=== PATIENT | male | born 1965 | race Caucasian/White ===

== ENCOUNTER 2021-06-07 11:32 | Emergency (ER) | payer OTHER ==
[~2021-06-07] VITALS: Ht 167.6 cm; Wt 77.3 kg
[2021-06-07] MEDS ORDERED: MIDAZOLAM HCL 2 MG/2 ML VIAL IVP ONE (12:00)
[2021-06-07] MEDS ORDERED: ONDANSETRON HCL 4 MG/2 ML VIAL IVP ONE ×2 (12:00→13:15)
[2021-06-07] MEDS ORDERED: FentaNYL CITRATE PF 100 MCG/2 ML VIAL IVP ONE (12:00)
[2021-06-07] MEDS ORDERED: KETOROLAC TROMETHAMINE 60 MG/2 ML VIAL IM ONE (12:00)
[2021-06-07] MEDS ORDERED: PROPOFOL 1% 20 ML VIAL IVP ONE (12:00)
[2021-06-07 12:04] LABS: GLUCOSE,POINT OF CARE 101 MG/DL (70-110)
[2021-06-07] MEDS ORDERED: PERTUSS(ACELL),DIPH,TET VAC/PF 0.5 ML SYRINGE IM. ONE (12:45)
[2021-06-07] MEDS ORDERED: MORPHINE SULFATE 4 MG/ML SYRINGE IVP ONE (13:15)
[2021-06-07] MEDS ORDERED: BUPIVACAINE 0.25%/EPI 1:200,000/PF 10 ML VIAL ONE (13:35)
[2021-06-07] MEDS ORDERED: LIDOCAINE/PF 1% 30 ML VIAL ONE (13:35)
[2021-06-07] MEDS ORDERED: BUPIVACAINE HCL/PF 0.25% 30 ML VIAL ONE (13:35)
[2021-06-07] MEDS ORDERED: RINGERS SOLUTION,LACTATED 1,000 ML IV ONE ×2 (13:39→13:45)
[2021-06-07 13:55] LABS: COVID AG,FIA SOURCE NASOPHARYNGEAL
[2021-06-07] MEDS ORDERED: MUPIROCIN CALCIUM 2% 22 GM OINTMENT ONE (14:40)
[2021-06-07] MEDS ORDERED: FentaNYL CITRATE PF 100 MCG/2 ML VIAL IVP PRN (14:45)
[2021-06-07] MEDS ORDERED: MEPERIDINE-PF 25 MG/ML VIAL IVP PRN (14:45)
[2021-06-07] MEDS ORDERED: HYDROmorphone 2 MG/ML VIAL IVP PRN (14:45)
[2021-06-07 15:35] VITALS: BP 140/78
[2021-06-07] MEDS ORDERED: OXYGEN THERAPY IH SCH (20:00)
== END 2021-06-07 17:10 | disposition home or self-care (01) ==
LOC: EMS 11:34
DX: S68.114A Complete traumatic metacarpophalangeal amputation of right ring finger, initial encounter (principal); Z20.822 Contact with and (suspected) exposure to COVID-19; X58.XXXA Exposure to other specified factors, initial encounter; Y93.89 Activity, other specified; Y92.89 Other specified places as the place of occurrence of the external cause; Y99.8 Other external cause status
CPT/HCPCS: 26951; 36415; 82962; 87426; 88300; 90471; 90715; 96361; 96374; 96375; 99285; J1885; J2250; J2270; J2405; J2704; J3010; J3490 ×2; J7120; 23600; Z7610